=== PATIENT | male | born 1970 | race Caucasian/White ===

== ENCOUNTER 2016-09-02 14:05 | Emergency (ER) | payer OTHER ==
[2016-09-02 14:33] LABS: SPECIFIC GRAVITY 1.025 (1.001-1.030); URINE BILIRUBIN NEGATIVE (NEGATIVE); URINE BLOOD 4+ (NEGATIVE); URINE GLUCOSE (UA) NEGATIVE (NEGATIVE); URINE NITRITE NEGATIVE (NEGATIVE); URINE PROTEIN 2+ (NEGATIVE); URINE UROBILINOGEN NORMAL (0-1 mg/dl)
[2016-09-02 14:40] LABS: URINE APPEARANCE CLOUDY; URINE COLOR YELLOW; URINE LEUKOCYTE ESTERASE 1+ (NEGATIVE)
[2016-09-02 14:41] LABS: URINE BACTERIA FEW; URINE WBC >100 /hpf
--- NOTE | 2016-09-02 15:29 | US ---
Indications: Right scrotal pain. Comparison: None Findings: Multiple grayscale, color-flow and duplex Doppler images during scrotal ultrasound are obtained. Right testis: 4.1 x 2.1 x 2.4 cm with normal blood flow. Echogenicity: Normal Epididymis: 0.7 x 0.9 x 0.8 cm. Other: Epididymal head cyst measuring 0.4 x 0.2 x 0.4 cm. The epididymal tail appears thickened with increased blood flow. Findings could relate to epididymitis. Left testis: 4.1 x 2.2 x 3.0 cm with normal blood flow. Echogenicity: Normal Epididymis: 1.0 x 0.9 x 0.7 cm. Other: Epididymal head cyst measuring 0.6 x 0.2 x 0.4 cm is present. Impression: Thickening to the right epididymal tail with increased blood flow. Finding could relate to epididymitis. Otherwise exam is unremarkable with normal echogenicity and blood flow to the testis bilaterally. Findings were called to Dr. Macedo at approximately 1525 hours on 09/02/2016.
[2016-09-02] MEDS ORDERED: CEFTRIAXONE SODIUM 250 MG VIAL ONE (15:43)
[2016-09-04 15:56] LABS: CHLAMYDIA BD Negative (Negative); N.GONORRHOEAE BD Negative (Negative); SOURCE Urine (())
== END 2016-09-02 16:03 | disposition home or self-care (01) ==
LOC: ED 14:05
DX: N45.1 Epididymitis (principal)
CPT/HCPCS: 87491; 87591; 87086; 81001; 76870; 99283 ×2; 96372; J0696